=== PATIENT | male | born 1965 | race Caucasian/White ===

== ENCOUNTER 2020-06-21 11:24 | Emergency (ER) | payer BC ==
[~2020-06-21] VITALS: Ht 177.8 cm; Wt 86.2 kg
[2020-06-21] MEDS ORDERED: AUGMENTIN 875875 MG PO (13:39)
[2020-06-21] MEDS ORDERED: ZYRTEC10 M3 PO (13:39)
[2020-06-21] MEDS ORDERED: FLONASE ALLERG9.9 ML NAS (13:39)
== END 2020-06-21 14:01 | disposition home or self-care (01) ==
LOC: ED 11:24
DX: J32.9 Chronic sinusitis, unspecified (principal)

== ENCOUNTER 2021-07-24 12:33 | Emergency (ER) | payer SELFPAY ==
[~2021-07-24] VITALS: Ht 177.8 cm; Wt 77.1 kg
[~2021-07-24 12:33] MED LIST: AUGMENTIN 875875 MG PO; FLONASE ALLERG9.9 ML NAS; ZYRTEC10 M3 PO
[2021-07-24 13:24] LABS: BASO # 0.1 10*3/uL (0.0-0.1); BASO % 1.2 % (0.0-1.0); EOS # 0.2 10*3/uL (0.0-0.4); EOS % 2.9 % (1.0-4.0); HEMATOCRIT 46.4 % (42.0-52.0); LYMPH # 2.7 10*3/uL (1.3-4.4); LYMPH % 34.8 % (27.0-41.0); MEAN CORPUSCULAR HGB 31.7 pg (27.0-31.0); MEAN CORPUSCULAR HGB CONC 34.1 g/dl (33.0-37.0); MEAN PLATELET VOLUME 9.1 fl (9.6-12.3); MONO # 0.6 10*3/uL (0.1-1.0); MONO % 7.8 % (3.0-9.0); NEUT # 4.2 10*3/uL (2.3-7.9); NEUT % 53.2 % (47.0-73.0); PLATELET COUNT AUTOMATED 227 10*3/uL (130-400); RED BLOOD COUNT 4.99 10*6/uL (4.50-5.90); RED CELL DISTRI WIDTH 12.7 % (0-14.5); WHITE BLOOD COUNT 7.8 10*3/uL (4.8-10.8)
[2021-07-24 13:41] LABS: ALBUMIN 3.4 gm/dl (3.1-4.5); ALKALINE PHOSPHATASE 52 U/L (45-117); BUN 12 mg/dl (7-24); CHLORIDE 106 mmol/L (98-107); CREATININE 0.96 mg/dL (0.70-1.30); POTASSIUM 3.9 mmol/L (3.5-5.1); SGOT/AST 12 IU/L (3-35); SGPT/ALT 21 U/L (12-78); SODIUM 138 mmol/L (136-145); TOTAL PROTEIN 7.6 gm/dL (6.4-8.2)
[2021-07-24 14:47] LABS: BILIRUBIN Negative (Negative); BLOOD Negative (Negative); CLARITY Clear (Clear); COLOR Yellow (Yellow); GLUCOSE Negative (Negative); KETONE Negative (Negative); LEUKO ESTERASE Negative (Negative); NITRITE Negative (Negative); SPECIFIC GRAVITY <= 1.005 (1.001-1.030); UROBILINOGEN 0.2 E.U./dl (0.0-1.0)
[2021-07-24 15:24] LABS: BACTERIA TRACE; RBC 0-2 rbc/hpf (0-2)
[2021-07-24] MEDS ORDERED: PREDNISONE20 M1 PO (16:35)
== END 2021-07-24 17:59 | disposition home or self-care (01) ==
LOC: ED 12:33
PROVIDERS: Physician Assistant
DX: M54.16 Radiculopathy, lumbar region (principal); Z88.1 Allergy status to other antibiotic agents

== ENCOUNTER 2021-07-31 08:36 | Emergency (ER) | payer SELFPAY ==
[~2021-07-31] VITALS: Wt 81.6 kg
[~2021-07-31 08:36] MED LIST changes: +PREDNISONE20 M1 PO
[2021-07-31] MEDS ORDERED: PREDNISONE50 MG PO (10:53)
[2021-07-31] MEDS ORDERED: ZANAFLEX4 MG PO (10:53)
[2021-07-31 11:58] LABS: BILIRUBIN Negative (Negative); BLOOD Negative (Negative); CLARITY Clear (Clear); COLOR Yellow (Yellow); GLUCOSE Negative (Negative); KETONE Negative (Negative); LEUKO ESTERASE Negative (Negative); NITRITE Negative (Negative); UROBILINOGEN 0.2 E.U./dl (0.0-1.0)
[2021-07-31 12:29] LABS: WBC 16-20 wbc/hpf (0-5)
[2021-07-31 12:30] LABS: BACTERIA 1+; MUCOUS TRACE
== END 2021-07-31 11:10 | disposition home or self-care (01) ==
LOC: ED 08:36
PROVIDERS: Nurse Practitioner Family
DX: M54.50 Low back pain, unspecified (principal)